=== PATIENT | female | born 1975 | race Caucasian/White ===

== ENCOUNTER 2020-10-15 15:54 | Emergency (ER) | payer BC ==
[2020-10-15] MEDS ORDERED: Metoprolol Tartrate 50 MG Tab PO STA (16:40)
--- NOTE | 2020-10-15 17:12 | EDM.PDOC ---
ED HPI GENERAL MEDICAL PROBLEM - General Stated Complaint: HEART ISSUES Time Seen by Provider: 10/15/20 17:15 Source of Information: Reports: Patient History Limitations: Reports: No Limitations - History of Present Illness INITIAL COMMENTS - FREE TEXT/NARRATIVE: Patient presented to the ED because of palpitations and dizziness for 3 days. The dizzy spell last for a few seconds. Denies having any chest pain, dyspnea, nausea or vomiting. She has a history of AFIB aand is taking eliquis 5 mg BID and dotelfimide 500 mg twice daily. - Related Data Allergies Allergy/AdvReac Type Severity Reaction Status Date / Time No Known Allergies Allergy Verified 10/15/20 18:08 Home Meds: Home Meds Apixaban [Eliquis] 5 mg PO BID 10/15/20 [History] Dofetilide [Tikosyn] 500 mcg PO BID 10/15/20 [History] Metoprolol Tartrate 25 mg PO DAILY #30 tablet 10/15/20 [Rx] ED ROS GENERAL - Review of Systems Review Of Systems: See Below Constitutional: Reports: No Symptoms HEENT: Reports: No Symptoms Respiratory: Reports: No Symptoms Cardiovascular: Reports: Palpitations Endocrine: Reports: No Symptoms GI/Abdominal: Reports: No Symptoms : Reports: No Symptoms Musculoskeletal: Reports: No Symptoms Skin: Reports: No Symptoms Neurological: Reports: Dizziness Psychiatric: Reports: No Symptoms ED EXAM, GENERAL - Physical Exam Exam: See Below Exam Limited By: No Limitations General Appearance: Alert, No Apparent Distress Ears: Normal External Exam, Normal Canal Nose: Normal Inspection, Normal Mucosa Throat/Mouth: Normal Inspection, Normal Lips Head: Atraumatic, Normocephalic Neck: Normal Inspection, Supple, Non-Tender Respiratory/Chest: No Respiratory Distress, Lungs Clear, Normal Breath Sounds, No Accessory Muscle Use, Chest Non-Tender Cardiovascular: Tachycardia, Irregularly Irregular GI/Abdominal: Normal Bowel Sounds, Soft, Non-Tender, No Distention, No Mass Rectal (Female) Exam: Normal Exam Back Exam: Normal Inspection, Full Range of Motion Extremities: Normal Inspection, Normal Range of Motion, Non-Tender, No Pedal Edema, Normal Capillary Refill Neurological: Alert, Oriented, CN II-XII Intact, Normal Cognition, Normal Reflexes, No Motor/Sensory Deficits #1 Interpretation EKG Date: 10/15/20 Time: 16:12 Rhythm: Other (Sinus Tach) Rate (Beats/Min): 120 [place]: Normal P-Wave: Present QRS: Normal ST-T: Depressed Comparison: NA - No Prior EKG (Sinus Tach Twave inv V1-V2) EKG Interpretation Comments: Sinus Tach ST wave inv V1 and V2 Course - Vital Signs Text/Narrative:: Lab/EKG result was reviewed and discussed with patient Metoprolol tartrate 50 mg PO x1 Cardiology consult was done with Dr Patton who want her to be started on metoprolol tartrate 25 mg daily and follow up with [facility] Last Recorded V/S: Last Vital Signs Temp 36.7 C 10/15/20 18:10 Pulse 132 H 10/15/20 18:10 Resp 18 10/15/20 18:10 BP 124/76 10/15/20 17:12 Pulse Ox 100 10/15/20 18:10 - Orders/Labs/Meds Labs: Laboratory Tests 10/15/20 10/15/20 10/15/20 Range/Units 16:40 16:40 16:40 WBC 5.3 (3.0-10.3) x10-3/uL RBC 4.23 (3.60-5.20) x10(6)uL Hgb 13.7 (11.4-15.5) g/dL Hct 41.6 (34.2-48.2) % MCV 98.2 (76.7-100.5) fL MCH 32.3 (23.9-33.9) pg MCHC 32.9 (31.9-34.8) g/dL RDW 14.4 (12.3-16.5) % Plt Count 195 (151-488) x10(3)uL MPV 9.0 (7.1-12.4) fL Neut % (Auto) 74.5 (30.8-76.2) % Lymph % (Auto) 15.8 L (18.4-52.1) % [place] % (Auto) 8.8 (4.4-15.7) % Eos % (Auto) 0.2 L (0.6-8.1) % Baso % (Auto) 0.7 (0.2-1.5) % Neut # (Auto) 3.9 (1.5-6.3) x10-3/uL Lymph # (Auto) 0.8 L (1.0-4.4) x10-3/uL [place] # (Auto) 0.5 (0.3-1.0) x10-3/uL Eos # (Auto) 0.0 (0.0-0.8) x10-3/uL Baso # (Auto) 0.0 (0.0-0.1) x10-3/uL Sodium 139 (135-145) mmol/L Potassium 3.7 (3.5-5.3) mmol/L Chloride 102 (100-110) mmol/L Carbon Dioxide 25 (21-32) mmol/L BUN 15 (7-18) mg/dL Creatinine 0.7 (0.55-1.02) mg/dL Est Cr Clr Drug Dosing TNP Estimated GFR (MDRD) > 60 (>60) BUN/Creatinine Ratio 21.4 H (9-20) Glucose 140 H (80-116) mg/dL Calcium 9.1 (8.6-10.2) mg/dL Magnesium 1.9 (1.8-2.5) mg/dL Total Bilirubin 0.7 (0.1-1.3) mg/dL AST 21 (5-25) IU/L ALT 32 (12-36) U/L Alkaline Phosphatase 81 (56-112) IU/L Troponin I < 4.0 L (4.0-60.3) pg/mL Total Protein 7.7 (6.0-8.0) g/dL Albumin 4.1 (3.5-5.2) g/dL Globulin 3.6 g/dL Albumin/Globulin Ratio 1.1 Meds: Medications Discontinued Medications Generic Name Dose Route Start Last Admin Trade Name Freq PRN Reason Stop Dose Admin Metoprolol Tartrate 50 mg 10/15/20 16:40 10/15/20 17:12 Metoprolol Tartrate 50 Mg Tab PO 10/15/20 16:41 50 mg NOW STA Administration Departure - Departure Time of Disposition: 18:15 Disposition: Home, Self-Care 01 Condition: Good Clinical Impression: Chronic a-fib, ROGER (generalized anxiety disorder) Prescriptions: Metoprolol Tartrate 25 mg PO DAILY #30 tablet Instructions: Palpitations, [id number], Atrial Fibrillation, [id number] Referrals: Linh Pritchard NP [Primary Care Provider] - Additional Instructions: Please read discharge instructions on AFIB Start taking metoprolol tartrate 25 mg daily Schedule an appointment with your heart doctor at [facility]) [phone] Follow up with your primary doctor with regards to your anxiety Cut on your alcohol and caffeine Sepsis Event Note (ED) - Focused Exam Vital Signs: Vital Signs Temp Pulse Pulse Resp BP Pulse Ox 10/15/20 18:10 36.7 C 132 H 18 100 10/15/20 17:12 125 H 124/76
== END 2020-10-15 18:50 | disposition home or self-care (01) ==
LOC: FB.ED 15:54
DX: I48.20 Chronic atrial fibrillation, unspecified (principal); F41.1 Generalized anxiety disorder; Z79.01 Long term (current) use of anticoagulants
CPT/HCPCS: 36415; 80053; 83735; 84484; 85025; 99285; A9270